=== PATIENT | male | born 2000 | race American Indian/Alaskan Native ===

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

== ENCOUNTER 2020-07-02 21:56 | Emergency (ER) | payer MEDICAID, OTHER ==
[2020-07-02 22:10] VITALS: BP 155/96; PULSE 89
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
[2020-07-02] MEDS ORDERED: HYDROmorphone 1 MG/ML Syringe IVPUSH ONE ×2 (22:35→23:24)
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
--- NOTE | 2020-07-02 23:47 | CR ---
PROCEDURE INFORMATION: Exam: XR Right Hand Exam date and time: 07/02/2020 11:11 PM Age: 19 years old Clinical indication: Other: Post reduction; Additional info: Post-reduction check TECHNIQUE: Imaging protocol: XR Right hand. Views: 1 or 2 views. COMPARISON: CR Hand Comp Min 3V Rt 07/02/2020 10:22 PM FINDINGS: Bones/joints: Oblique fracture of the right 4th metacarpal basal metaphysis with displacement. There is ulnar displacement approximately 7 mm. There also appears to be dorsal displacement of the distal shaft approximately 9-10 mm. Soft tissues: Normal. IMPRESSION: Displaced oblique fracture of the 4th metacarpal basal metaphysis. 7 mm displacement of the distal shaft towards the ulnar direction. There also appears to be dorsal displacement of approximately 9-10 mm
--- NOTE | 2020-07-03 00:08 | CR ---
PROCEDURE INFORMATION: Exam: XR Right Hand Exam date and time: 07/02/2020 11:48 PM Age: 19 years old Clinical indication: Other: Post reduction #2; Additional info: Post-reduction TECHNIQUE: Imaging protocol: XR Right hand. Views: 1 or 2 views. COMPARISON: CR Hand Comp Min 3V Rt 07/02/2020 11:11 PM FINDINGS: Bones/joints: Persist displacement of right 4th metacarpal base oblique metaphyseal fracture. Lateral view suggest dorsal subluxation or dislocation of the 5th metacarpal at the carpometacarpal joint. The distal shaft of the 4th metacarpal also shows dorsal displacement. Soft tissues: Normal. IMPRESSION: 1. Persistent displacement of the right 4th metacarpal basal metaphyseal oblique fracture. 2. Lateral view suggests dorsal displacement of both the 4th and 5th metacarpals at the carpometacarpal joint. This suggests subluxation or dislocation.
== END 2020-07-03 00:32 | disposition home or self-care (01) ==
LOC: DL.ED 21:56
DX: S62.314A Displaced fracture of base of fourth metacarpal bone, right hand, initial encounter for closed fracture (principal); J45.909 Unspecified asthma, uncomplicated; E66.9 Obesity, unspecified; Z68.41 Body mass index [BMI] 40.0-44.9, adult; X58.XXXA Exposure to other specified factors, initial encounter
CPT/HCPCS: 73120-RT; 73130-RT; 96374; 96376; 99283-25; J1170

== ENCOUNTER 2020-10-07 21:52 | Emergency (ER) | payer MEDICAID ==
[2020-10-07 23:32] VITALS: BP 134/76; PULSE 107
[2020-10-08] MEDS ORDERED: Albuterol/Ipratropium 3.0-0.5 MG/3 ML Neb Soln NEB ONE (02:36)
--- NOTE | 2020-10-08 02:51 | EDM.PDOC ---
ED HPI GENERAL MEDICAL PROBLEM - General Chief Complaint: Respiratory Problem Stated Complaint: BAD COUGH SINUS Time Seen by Provider: 10/08/20 02:37 Source of Information: Reports: Patient, Family, RN History Limitations: Reports: No Limitations - History of Present Illness INITIAL COMMENTS - FREE TEXT/NARRATIVE: 20-year-old male who presents to the ER with his mother for complaints of nonproductive cough that has been ongoing for over a month. Patient also adds that he started having sore throat 2 days ago. He denies any fevers or chills, URI, shortness of breath, palpitations, or chest pains at this time. He has tried [id number] DayQuil, NyQuil, and Robitussin syrup for over a week with no relief. Patient's mother reports that patient has a history of asthma but has nit used his inhaler for many years. - Related Data Allergies Allergy/AdvReac Type Severity Reaction Status Date / Time No Known Allergies Allergy Verified 07/02/20 22:05 Home Meds: Home Meds . [No Known Home Meds] 06/28/20 [History] Past Medical History - Past Health History Medical/Surgical History: Denies Medical/Surgical History HEENT History: Reports: Impaired Vision Other HEENT History: frequent ear infections with tubes placed about 3 times Respiratory History: Reports: Asthma Other Respiratory History: exercise induced asthma Endocrine/Metabolic History: Reports: Obesity/BMI 30+ - Infectious Disease History Infectious Disease History: Reports: None - Past Surgical History HEENT Surgical History: Reports: Myringotomy w Tube(s), Tonsillectomy Other HEENT Surgeries/Procedures: adenoidectomy Endocrine Surgical History: Reports: None Social & Family History - Family History Family Medical History: No Pertinent Family History - Tobacco Use Tobacco Use Status *Q: Former Tobacco User Used Tobacco, but Quit: Yes Month/Year Tobacco Last Used: 08/22/20 - Caffeine Use Caffeine Use: Reports: Energy Drinks - Recreational Drug Use Recreational Drug Use: Yes Recreational Drug Type: Reports: Marijuana/Hashish Recreational Drug Use Frequency: Weekly - Living Situation & Occupation Living situation: Reports: with Family Occupation: Student ED ROS GENERAL - Review of Systems Review Of Systems: Comprehensive ROS is negative, except as noted in HPI. ED EXAM, GENERAL - Physical Exam Exam: See Below Exam Limited By: No Limitations General Appearance: Alert, No Apparent Distress, Anxious Eye Exam: Bilateral Eye: EOMI, PERRL Ears: Normal External Exam, Normal Canal, Hearing Grossly Normal, Normal TMs Nose: Normal Inspection, Normal Mucosa, No Blood Throat/Mouth: Normal Inspection, Normal Lips, Normal Teeth, Normal Gums, Normal Oropharynx, Normal Voice, No Airway Compromise Head: Atraumatic, Normocephalic Neck: Normal Inspection, Supple, Non-Tender, Full Range of Motion Respiratory/Chest: Wheezing (mild wheezing in the upper lobes) Cardiovascular: Normal Peripheral Pulses, No Edema, No Gallop, No JVD, No Murmur, No Rub, Tachycardia GI/Abdominal: Normal Bowel Sounds, Soft, Non-Tender, No Organomegaly, No Distention, No Abnormal Bruit, No Mass Neurological: Alert, Oriented, Normal Gait Psychiatric: Anxious Lymphatic: No Adenopathy Course - Vital Signs Last Recorded V/S: Last Vital Signs Temp 96.6 F L 10/07/20 23:28 Pulse 107 H 10/07/20 23:28 Resp 20 10/07/20 23:28 BP 134/76 10/07/20 23:28 Pulse Ox 99 10/07/20 23:28 - Orders/Labs/Meds Meds: Medications Discontinued Medications Generic Name Dose Route Start Last Admin Trade Name Freq PRN Reason Stop Dose Admin Albuterol Confirm 10/08/20 05:49 Albuterol 6.7 Gm Inhaler Administered 10/08/20 05:50 Dose 6.7 gm INH .STK-MED ONE Albuterol/Ipratropium 3 ml 10/08/20 02:36 10/08/20 02:41 Albuterol/Ipratropium 3.0-0.5 Mg/3 Ml Neb Soln NEB 10/08/20 02:37 3 ml ONETIME ONE Administration - Re-Assessments/Exams Free Text/Narrative Re-Assessment/Exam: Reviewed exam findings with patient and his mother. Duoneb administered with resolution in symptoms. Chest xray negative. Albuterol inhaler given to patient and also an RX. Encouraged him to use Albuterol inhaler as needed and follow up with his PCP. Departure - Departure Time of Disposition: 05:44 Disposition: Home, Self-Care 01 Condition: Good Clinical Impression: Acute asthma, Cough - Discharge Information Instructions: Shortness of Breath, Adult, [id number] Forms: ED Department Discharge Additional Instructions: Encouraged patient to take medications as prescribed Follow up with PCP on September 09. Sepsis Event Note (ED) - Evaluation Sepsis Screening Result: No Definite Risk
--- NOTE | 2020-10-08 05:27 | CR ---
PROCEDURE INFORMATION: Exam: XR Chest Exam date and time: 10/08/2020 2:53 AM Age: 20 years old Clinical indication: Cough and shortness of breath; Additional info: SOB, cough TECHNIQUE: Imaging protocol: XR of the chest. Views: 2 views. COMPARISON: CR Chest 2V 04/17/2018 9:13 PM FINDINGS: Lungs: Unremarkable. No consolidation. Pleural spaces: Unremarkable. No pleural effusion. No pneumothorax. Heart/Mediastinum: Unremarkable. No cardiomegaly. Bones/joints: Unremarkable. IMPRESSION: No acute findings.
[2020-10-08] MEDS ORDERED: Albuterol 6.7 GM Inhaler INH ONE (05:49)
== END 2020-10-08 05:54 | disposition home or self-care (01) ==
LOC: DL.ED 21:52
DX: J45.909 Unspecified asthma, uncomplicated (principal); E66.9 Obesity, unspecified; Z87.891 Personal history of nicotine dependence
CPT/HCPCS: 71046; 94640; 99283; A9270; J7620-GY

== ENCOUNTER 2023-01-17 21:40 | Emergency (ER) | payer MEDICAID ==
[2023-01-17 22:47] VITALS: BP 130/76; PULSE 136
[2023-01-17] MEDS ORDERED: Lidocaine 1% 5 ML VIAL INJECT ONE (22:50)
[2023-01-17] MEDS ORDERED: Bacitracin Oint 1 GM U/D Packet TOP ONE (22:51)
[2023-01-18] MEDS ORDERED: Amoxicillin/Clavulanate K 875-125 MG Tab PO ONE (00:12)
== END 2023-01-18 00:35 | disposition home or self-care (01) ==
LOC: DL.ED 21:40
DX: S61.451A Open bite of right hand, initial encounter (principal); J45.909 Unspecified asthma, uncomplicated; E66.9 Obesity, unspecified; F17.290 Nicotine dependence, other tobacco product, uncomplicated; Z68.41 Body mass index [BMI] 40.0-44.9, adult; Y04.1XXA Assault by human bite, initial encounter; Y92.89 Other specified places as the place of occurrence of the external cause
CPT/HCPCS: 12002; 99283; A9270-GY; J3490

== ENCOUNTER 2023-05-03 16:27 | Emergency (ER) | payer MEDICAID ==
[2023-05-03 21:12] LABS: CORONAVIRUS COVID-19 NAA NEGATIVE (NEGATIVE); INFLUENZA A NAA POSITIVE (NEGATIVE); INFLUENZA B NAA NEGATIVE (NEGATIVE); RESPIRATORY SYNCYTIAL VIR NAA NEGATIVE (NEGATIVE)
[2023-05-03 21:19] VITALS: BP 152/91; PULSE 113
[2023-05-03] MEDS: Ketorolac 30 MG/ML SDV IM ONE (21:46)
[2023-05-03] MEDS: Take Home: Albuterol/Ipratropium 3.0-0.5 MG/3 ML Neb Soln, 5 Neb Pack NEB ONE (22:06)
== END 2023-05-03 22:12 | disposition home or self-care (01) ==
LOC: DL.ED 16:27
DX: J10.1 Influenza due to other identified influenza virus with other respiratory manifestations (principal); E66.9 Obesity, unspecified; Z68.41 Body mass index [BMI] 40.0-44.9, adult
CPT/HCPCS: 0241U; 96372; 99283; A9270; J1885